=== PATIENT | male | born 1980 | race African-American/Black ===

== ENCOUNTER 2016-10-19 13:50 | Emergency (ER) | payer MEDICAID ==
[~2016-10-19] VITALS: Ht 160 cm; Wt 77.1 kg
[~2016-10-19 13:50] MED LIST: ALBU0.0939 IH
[2016-10-19 14:04] VITALS: BP 129/70
--- NOTE | 2016-10-19 14:35 | NUR ---
PT PRESENTS TO ER W/C/O SOB. PT STATES HE HAS HX OF ASTHMA AND RAN OUT OF HIS MEDICATION YESTERDAY AND NOW FEELS SOB. DENIES N/V/D; SKIN IS PINK/WARM/DRY; AAOX4 WITH EVEN AND STEADY GAIT; LUNGS EXP WHEEZING BL; HR EVEN AND REGULAR; PT DENIES ANY FEVER, CP, OR COUGH AT THIS TIME; PATIENT STATES PAIN OF 0/10 AT THIS TIME; VSS; PATIENT POSITIONED FOR COMFORT; HOB ELEVATED; BEDRAILS UP X2; BED DOWN. ER MD MADE AWARE OF PT STATUS.
[2016-10-19] MEDS ORDERED: ALBUTEROL SULFATE/IPRATROPIU 3 ML SOL IH ONE (16:05)
[2016-10-19] MEDS ORDERED: predniSONE 20 MG TAB PO ONE (16:05)
[2016-10-19 16:54] VITALS: BP 129/70
--- NOTE | 2016-10-19 16:54 | NUR ---
Patient discharged with v/s stable. Written and verbal after care instructions given and explained. Patient alert, oriented and verbalized understanding of instructions. Ambulatory with steady gait. All questions addressed prior to discharge. ID band removed. Patient advised to follow up with PMD. Rx of ALBUTEROL, PREDNISONE given. Patient educated on indication of medication including possible reaction and side effects. Opportunity to ask questions provided and answered.
== END 2016-10-19 16:54 | disposition home or self-care (01) ==
LOC: MED 13:50
DX: Z76.0 Encounter for issue of repeat prescription (principal); J45.901 Unspecified asthma with (acute) exacerbation; R03.0 Elevated blood-pressure reading, without diagnosis of hypertension
CPT/HCPCS: 94640; 99283; J7512; J7620

== ENCOUNTER 2019-08-26 22:40 | Emergency (ER) | payer SELFPAY ==
[~2019-08-26] VITALS: Ht 160 cm; Wt 74.8 kg
[2019-08-26 22:40] VITALS: BP 126/79
--- NOTE | 2019-08-26 22:40 | NUR ---
TO BED # 8 AMBULATORY
[2019-08-26 22:50] VITALS: BP 126/79
--- NOTE | 2019-08-26 22:50 | NUR ---
PT ASSESSMENT COMPLETE. PT SEATED UPRIGHT IN BED. WILL CONTINUE TO MONITOR.
--- NOTE | 2019-08-26 23:02 | NUR ---
Dr. Mo examining patient.
[2019-08-26] MEDS: predniSONE 20 MG TAB PO ONE (23:07)
[2019-08-26] MEDS: ALBUTEROL SULFATE/IPRATROPIU 3 ML SOL IH ONE (23:11)
[2019-08-26] MEDS: ALBUTEROL 0.083% 2.5 MG/3 ML NEBU INH ONE (23:11)
--- NOTE | 2019-08-26 23:15 | NUR ---
Respiratory Therapist at bedside for respiratory intervention.
--- NOTE | 2019-08-26 23:28 | NUR ---
Patient discharged with v/s stable. Written and verbal after care instructions given and explained. Patient alert, oriented and verbalized understanding of instructions. Ambulatory with steady gait. All questions addressed prior to discharge. ID band removed. Patient advised to follow up with PMD. Rx of PREDNISONE AND ALBUTEROL given. Patient educated on indication of medication including possible reaction and side effects. Opportunity to ask questions provided and answered.
== END 2019-08-26 23:28 | disposition home or self-care (01) ==
LOC: MED 22:40
DX: J45.909 Unspecified asthma, uncomplicated (principal); Z79.899 Other long term (current) drug therapy
CPT/HCPCS: 94640; 99283; J7512; J7613; J7620

== ENCOUNTER 2020-06-27 23:12 | Emergency (ER) | payer OTHER ==
[~2020-06-27] VITALS: Ht 162.6 cm; Wt 77.1 kg
[2020-06-27 23:26] VITALS: BP 134/79
[2020-06-28] MEDS ORDERED: KETOROLAC 30 MG/ML VIAL IVP ONE (00:55)
[2020-06-28] MEDS ORDERED: PANTOPRAZOLE 40 MG INJ VIAL IVP ONE (00:55)
[2020-06-28 01:31] LABS: BASOPHILS # (AUTO) 0.1 K/uL (0.00-0.22); EOSINOPHILS # (AUTO) 0.3 K/uL (0-0.4); EOSINOPHILS % (AUTO) 4.6 % (0.0-4.0); HEMATOCRIT 43.7 % (36-52); HEMOGLOBIN 14.3 g/dL (12.0-18.0); LYMPHOCYTES # (AUTO) 3.3 K/uL (2.0-11.5); LYMPHOCYTES % (AUTO) 45.8 % (20.5-51.1); MEAN CORPUSCULAR HEMOGLOBIN 29 pg (27-31); MEAN CORPUSCULAR HGB CONC 33 g/dL (33-37); MEAN CORPUSCULAR VOLUME 86.9 fL (80-94); MONOCYTES # (AUTO) 0.5 K/uL (0.8-1.0); MONOCYTES % (AUTO) 7.7 % (1.7-9.3); NEUTROPHILS # (AUTO) 2.9 K/uL (1.8-7.7); NEUTROPHILS % (AUTO) 40.9 % (42.2-75.2); PLATELET COUNT (AUTO) 324 K/uL (140-450); RED BLOOD CELL COUNT(AUTO) 5.02 MIL/uL (4.20-6.10); RED CELL DISTRIBUTION WIDTH 14.6 % (11.6-13.7); WHITE BLOOD COUNT (AUTO) 7.1 K/uL (4.8-10.8)
[2020-06-28 01:45] LABS: ALBUMIN 3.7 g/dL (3.4-5.0); ANION GAP 10.8 (8-16); CREATININE 1.3 mg/dL (0.6-1.3); POTASSIUM 3.8 mmol/L (3.5-5.1); TOTAL BILIRUBIN 0.2 mg/dL (0.0-1.0)
[2020-06-28] MEDS: KETOROLAC 30 MG/ML VIAL IM ONE (02:01)
[2020-06-28] MEDS: PANTOPRAZOLE 40 MG TABEC PO ONE (02:02)
[2020-06-28 04:06] VITALS: BP 138/81
--- NOTE | 2020-06-28 04:06 | NUR ---
Patient discharged with v/s stable. Written and verbal after care instructions given and explained. Patient alert, oriented and verbalized understanding of instructions. Ambulatory with steady gait. All questions addressed prior to discharge. ID band removed. Patient advised to follow up with PMD. Rx of protonix given. Patient educated on indication of medication including possible reaction and side effects. Opportunity to ask questions provided and answered.
== END 2020-06-28 04:06 | disposition home or self-care (01) ==
LOC: MED 23:12
DX: R10.13 Epigastric pain (principal)
CPT/HCPCS: 36415; 74176; 80053; 83605; 83690; 84484; 85025; 93005; 96372; 99285; J1885

== ENCOUNTER 2020-11-04 08:52 | Emergency (ER) | payer OTHER ==
[~2020-11-04] VITALS: Ht 162.6 cm; Wt 81.6 kg
[2020-11-04 09:04] VITALS: BP 129/52
--- NOTE | 2020-11-04 09:08 | NUR ---
PATIENT AMBULATED TO BED 12 AT THIS TIME.
--- NOTE | 2020-11-04 09:19 | NUR ---
40 Y/O MALE C/O EPIGASTRIC PAIN 02/07 DESCRIBES PRESSURE X 1WEEK. PT REPORTS NOTICING A LUMP ON SAME AREA 2 WEEKS AGO. ABDOMEN IS SOFT, ROUND, GUARDING ON PALPATION TO EPIGASTRIC AREA. BOWEL SOUNDS ACTIVE X4, LAST BM 11/03/20. PT DENIES N/V, DENIES FEVER/CHILLS. PMH: ASTHMA, GERD RX: ALBUTEROL INH, PRILOSEC 40MG NKA
--- NOTE | 2020-11-04 09:31 | NUR ---
Dr. Parkinson at pt bedside for further evaluation.
[2020-11-04] MEDS ORDERED: NAPR-1704 PO (09:43)
[2020-11-04 09:49] VITALS: BP 129/52
--- NOTE | 2020-11-04 09:50 | NUR ---
Patient discharged with v/s stable. Written and verbal after care instructions given and explained. Patient alert, oriented and verbalized understanding of instructions. Ambulatory with steady gait. All questions addressed prior to discharge. ID band removed. Patient advised to follow up with PMD. Rx of NAPROSYN 375MG PO BID PRN PAIN given. Patient educated on indication of medication including possible reaction and side effects. Opportunity to ask questions provided and answered.
== END 2020-11-04 09:50 | disposition home or self-care (01) ==
LOC: MED 08:52
DX: K46.9 Unspecified abdominal hernia without obstruction or gangrene (principal); J45.909 Unspecified asthma, uncomplicated; K21.9 Gastro-esophageal reflux disease without esophagitis
CPT/HCPCS: 99282

== ENCOUNTER 2021-01-03 15:18 | Emergency (ER) | payer SELFPAY ==
[~2021-01-03] VITALS: Ht 162.6 cm; Wt 85.7 kg
[~2021-01-03 15:18] MED LIST changes: +NAPR-1704 PO
[2021-01-03 15:20] VITALS: BP 146/77
--- NOTE | 2021-01-03 16:05 | NUR ---
40/M presents to ED with c/o shortness of breath for 2 days. Patient has hx of asthma states, "I ran out of my albuterol inhaler and I feel a little short of breath." Patient denies chest pain or cough, states he has no PCP to follow up with for Rx of albuterol. Patient 99% on room air upon arrival to ED.
[2021-01-03] MEDS ORDERED: DEXAMETHASONE 4 MG/ML VIAL PO ONE (17:00)
[2021-01-03] MEDS ORDERED: ALBU0.0912 INH (17:03)
[2021-01-03 17:43] VITALS: BP 157/89
--- NOTE | 2021-01-03 17:44 | NUR ---
Patient discharged with v/s stable. Written and verbal after care instructions given and explained. Patient alert, oriented and verbalized understanding of instructions. Ambulatory with steady gait. All questions addressed prior to discharge. ID band removed. Patient advised to follow up with PMD. Rx of Albuterol Sulfate given. Patient educated on indication of medication including possible reaction and side effects. Opportunity to ask questions provided and answered.
== END 2021-01-03 17:44 | disposition home or self-care (01) ==
LOC: MED 15:18
DX: J45.901 Unspecified asthma with (acute) exacerbation (principal); K21.9 Gastro-esophageal reflux disease without esophagitis
CPT/HCPCS: 99283; J1100

== ENCOUNTER 2021-06-02 15:17 | Emergency (ER) | payer SELFPAY ==
[~2021-06-02] VITALS: Ht 162.6 cm; Wt 88.5 kg
[~2021-06-02 15:17] MED LIST changes: +ALBU0.0912 INH
[2021-06-02 15:26] VITALS: BP 134/74
--- NOTE | 2021-06-02 16:13 | NUR ---
ATTEMPTED TO CALL PATIENT AND NO ANSWER AT THIS TIME
--- NOTE | 2021-06-02 16:33 | NUR ---
41 y/o m bib self from home, patient presents to ED with abscess on right side of face. Redness in area pain upon palpation, 9/10 sharp pain, denies blurry vision, nausea, vomiting, diarrhea. DENIES N/V/D; SKIN IS PINK/WARM/DRY; AAOX4 WITH EVEN AND STEADY GAIT; LUNGS CLEAR BL; HR EVEN AND REGULAR; PT DENIES ANY FEVER, CP, SOB, OR COUGH AT THIS TIME; PATIENT STATES PAIN OF 9/10 AT THIS TIME; VSS; PATIENT POSITIONED FOR COMFORT; HOB ELEVATED; BEDRAILS UP X2; BED DOWN. ER MD MADE AWARE OF PT STATUS. pmh: asthma med: albuterol nka
--- NOTE | 2021-06-02 16:38 | NUR ---
DIALLO WIGGINS BEDSIDE EVALUATING PT
[2021-06-02] MEDS ORDERED: NAPR-54 PO (16:43)
[2021-06-02] MEDS ORDERED: AMOX-1000 PO (16:43)
[2021-06-02] MEDS ORDERED: KETOROLAC 30 MG/ML VIAL IM ONE (16:45)
[2021-06-02 17:03] VITALS: BP 128/70
--- NOTE | 2021-06-02 17:03 | NUR ---
Patient discharged with v/s stable. Written and verbal after care instructions given PAROTITIS and explained. Patient alert, oriented and verbalized understanding of instructions. Ambulatory with steady gait. All questions addressed prior to discharge. ID band removed. Patient advised to follow up with PMD. Rx of AUGMENTIN, AND NAPROXEN given. Patient educated on indication of medication including possible reaction and side effects. Opportunity to ask questions provided and answered.
== END 2021-06-02 17:03 | disposition home or self-care (01) ==
LOC: MED 15:17
DX: K11.20 Sialoadenitis, unspecified (principal); J45.909 Unspecified asthma, uncomplicated; K21.9 Gastro-esophageal reflux disease without esophagitis; Z79.1 Long term (current) use of non-steroidal anti-inflammatories (NSAID); Z79.2 Long term (current) use of antibiotics; Z79.51 Long term (current) use of inhaled steroids
CPT/HCPCS: 96372; 99283; J1885

== ENCOUNTER 2021-08-29 13:56 | Emergency (ER) | payer BC ==
[~2021-08-29] VITALS: Ht 162.6 cm; Wt 88.0 kg
[~2021-08-29 13:56] MED LIST changes: +AMOX-1000 PO; +NAPR-54 PO
[2021-08-29 13:57] VITALS: BP 130/85
--- NOTE | 2021-08-29 14:07 | NUR ---
41 Male BIB self for c/o lower back pain x 3 days. Pt states this is a chronic problem that comes and goes. Denies any recent trauma to back or falls. No pritrusions or bruises/lumps/masses noted on back. AOX4, able to make needs known. Resp even and unlabored. PmHx: asthma Home meds: albuterol Allergies: Denies
[2021-08-29] MEDS ORDERED: KETOROLAC 30 MG/ML VIAL IM ONE (14:40)
[2021-08-29] MEDS ORDERED: LID5T TP (15:18)
[2021-08-29] MEDS ORDERED: IBUP-2213 PO (15:18)
[2021-08-29] MEDS ORDERED: ACET-8386 PO (15:18)
--- NOTE | 2021-08-29 15:20 | NUR ---
DIALLO Hernandes at bedside to assess pt at this time
--- NOTE | 2021-08-29 15:53 | NUR ---
Urine sample obtained, dipped and results given to DIALLO Hernandes
[2021-08-29 16:08] VITALS: BP 132/27
--- NOTE | 2021-08-29 16:08 | NUR ---
Patient discharged with v/s stable. Written and verbal after care instructions given and explained. Patient alert, oriented and verbalized understanding of instructions. All questions addressed prior to discharge. ID band removed. Patient advised to follow up with PMD. Rx of NORCO 5/325, IBUPROFEN AND LIDOCAINE PATCH 5% given. Patient educated on indication of medication including possible reaction and side effects. Opportunity to ask questions provided and answered.
== END 2021-08-29 16:08 | disposition home or self-care (01) ==
LOC: MED 13:56
DX: M54.59 Other low back pain (principal); R03.0 Elevated blood-pressure reading, without diagnosis of hypertension; J45.909 Unspecified asthma, uncomplicated; K21.9 Gastro-esophageal reflux disease without esophagitis; Z79.899 Other long term (current) drug therapy
CPT/HCPCS: 81002; 96372; 99283; J1885

== ENCOUNTER 2021-10-05 19:42 | Emergency (ER) | payer BC ==
[~2021-10-05] VITALS: Ht 162.6 cm; Wt 86.2 kg
[~2021-10-05 19:42] MED LIST changes: +ACET-8386 PO; +IBUP-2213 PO; +LID5T TP
[2021-10-05 19:45] VITALS: BP 140/90
[2021-10-05] MEDS ORDERED: IBUP-2213 PO (21:28)
[2021-10-05] MEDS ORDERED: IBUPROFEN 600 MG TAB PO ONE (21:30)
[2021-10-05 22:10] VITALS: BP 139/70
== END 2021-10-05 22:10 | disposition home or self-care (01) ==
LOC: MED 19:42
DX: S46.011A Strain of muscle(s) and tendon(s) of the rotator cuff of right shoulder, initial encounter (principal); J45.909 Unspecified asthma, uncomplicated; K21.9 Gastro-esophageal reflux disease without esophagitis; Z79.891 Long term (current) use of opiate analgesic; Z79.1 Long term (current) use of non-steroidal anti-inflammatories (NSAID); Z79.899 Other long term (current) drug therapy; Z79.2 Long term (current) use of antibiotics; X58.XXXA Exposure to other specified factors, initial encounter; Y93.61 Activity, american tackle football; Y92.321 Football field as the place of occurrence of the external cause; Y99.8 Other external cause status
CPT/HCPCS: 73030; 99283

== ENCOUNTER 2021-11-25 14:27 | Emergency (ER) | payer BC ==
[~2021-11-25] VITALS: Ht 160 cm; Wt 85.7 kg
[2021-11-25 14:38] VITALS: BP 127/73
--- NOTE | 2021-11-25 15:08 | NUR ---
PT AMBULATED TO BED 03.
--- NOTE | 2021-11-25 15:11 | NUR ---
DR. BOOTH AT PT BEDSIDE FOR FURTHER EVALUATION.
[2021-11-25] MEDS ORDERED: KETOROLAC 30 MG/ML VIAL IM ONE (15:15)
[2021-11-25] MEDS ORDERED: ALBUTEROL SULFATE/IPRATROPIU 3 ML SOL IH ONE (15:15)
[2021-11-25] MEDS ORDERED: LORATADINE 10 MG TAB PO ONE (15:15)
[2021-11-25] MEDS ORDERED: predniSONE 20 MG TAB PO ONE (15:15)
--- NOTE | 2021-11-25 15:16 | NUR ---
41 Y/O MALE C/O PRODUCTIVE COUGH WITH YELLOW PHLEGM, PRESENT AND SOB X1 WEEK. PT CURRENTLY SATING 99% ON RA. PT ALSO C/O CHEST PAIN/TIGHTNESS. LUNGS AUSCULTATED CLEAR BILATERALLY. DENIES FEVER/CHILLS. DENIES N/V/D. PMH: ASTHMA NKA
--- NOTE | 2021-11-25 15:29 | NUR ---
RT AT PT BEDSIDE FOR BREATHING TX.
--- NOTE | 2021-11-25 16:32 | NUR ---
DR. BOOTH AT PT BEDSIDE FOR FOR REEVALUATION.
[2021-11-25] MEDS ORDERED: LORA10TA19 PO (16:40)
[2021-11-25] MEDS ORDERED: ALBU0.0912 IH (16:40)
[2021-11-25] MEDS ORDERED: PRED20TA5 PO (16:40)
--- NOTE | 2021-11-25 17:00 | NUR ---
Patient discharged with v/s stable. Written and verbal after care instructions given FOR UPPER RESPIRATORY INFECTION AND ASTHMA ATTACK and explained. Patient alert, oriented and verbalized understanding of instructions. Ambulatory with steady gait. All questions addressed prior to discharge. ID band removed. Patient advised to follow up with PMD. Rx of ALBUTEROL, PREDNISONE, AND CLARITIN given. Patient educated on indication of medication including possible reaction and side effects. Opportunity to ask questions provided and answered.
[2021-11-25 17:01] VITALS: BP 122/79
== END 2021-11-25 17:00 | disposition home or self-care (01) ==
LOC: MED 14:27
DX: J45.901 Unspecified asthma with (acute) exacerbation (principal); Z20.822 Contact with and (suspected) exposure to COVID-19; J06.9 Acute upper respiratory infection, unspecified; K21.9 Gastro-esophageal reflux disease without esophagitis; Z79.899 Other long term (current) drug therapy; Z79.1 Long term (current) use of non-steroidal anti-inflammatories (NSAID); Z79.891 Long term (current) use of opiate analgesic; Z79.2 Long term (current) use of antibiotics
CPT/HCPCS: 87426; 87804; 94640; 96372; 99283; J1885; J7512

== ENCOUNTER 2022-04-18 10:30 | Emergency (ER) | payer SELFPAY ==
[~2022-04-18] VITALS: Ht 172.7 cm; Wt 74.8 kg
[~2022-04-18 10:30] MED LIST changes: +ALBU0.0912 IH; +LORA10TA19 PO; +PRED20TA5 PO
[2022-04-18 10:34] VITALS: BP 130/72
--- NOTE | 2022-04-18 10:40 | NUR ---
42/M WALKED IN C/O LOWER BACK PAIN RADIATING TO RIGHT LEG ONSET 2 DAYS. STATES HX SCIATICA. STATES CURRENT S/SX IS SIMILAR TO FLAREUPS IN THE PAST. DENIES FALL OR TRAUMA. AAO4, AMBULATORY. PMH: ASTHMA
[2022-04-18 10:50] VITALS: BP 134/75
[2022-04-18] MEDS ORDERED: NAPR-1704 PO (11:01)
[2022-04-18] MEDS ORDERED: LID5T TP (11:01)
[2022-04-18] MEDS ORDERED: ACET-8386 PO (11:01)
--- NOTE | 2022-04-18 11:05 | NUR ---
Patient discharged with v/s stable. Written and verbal after care instructions given and explained. Patient verbalized understanding. Ambulatory with steady gait. All questions addressed prior to discharge. Advised to follow up with PMD.
== END 2022-04-18 11:05 | disposition home or self-care (01) ==
LOC: MED 10:30
DX: M54.31 Sciatica, right side (principal); J45.909 Unspecified asthma, uncomplicated; K21.9 Gastro-esophageal reflux disease without esophagitis
CPT/HCPCS: 99283

== ENCOUNTER 2022-05-28 15:12 | Emergency (ER) | payer SELFPAY ==
[~2022-05-28] VITALS: Ht 167.6 cm; Wt 83.9 kg
[2022-05-28 15:18] VITALS: BP 130/80
[2022-05-28] MEDS ORDERED: CEPH-588 PO (15:39)
[2022-05-28] MEDS ORDERED: IBUP-2213 PO (15:39)
--- NOTE | 2022-05-28 16:10 | NUR ---
PT NOT FOUND IN LOBBY OR OUTSIDE LOBBY, LEFT W/O DC PAPERS
== END 2022-05-28 17:17 | disposition home or self-care (01) ==
LOC: MED 15:12
DX: L03.012 Cellulitis of left finger (principal); J45.909 Unspecified asthma, uncomplicated; K21.9 Gastro-esophageal reflux disease without esophagitis
CPT/HCPCS: 99283

== ENCOUNTER 2022-09-04 21:40 | Emergency (ER) | payer SELFPAY ==
[~2022-09-04] VITALS: Ht 162.6 cm; Wt 95.3 kg
[~2022-09-04 21:40] MED LIST changes: -ACET-8386 PO; +ACET-8905 PO; +CEPH-588 PO
[2022-09-04 21:49] VITALS: BP 129/85
--- NOTE | 2022-09-04 21:53 | NUR ---
pt to bed
--- NOTE | 2022-09-04 22:00 | NUR ---
PT IS HERE FOR DENTAL PAIN 04/09. HE ATE SOMETHING AND DONOVAN BROKE HIS ANA PAULA TOOTH. PT IS ALERT AND ORIENTED X4.
[2022-09-04] MEDS ORDERED: ACET-10509 PO (22:45)
[2022-09-04] MEDS ORDERED: IBUP-2213 PO (22:45)
[2022-09-04] MEDS ORDERED: AMOX-999 PO (22:48)
[2022-09-04 23:26] VITALS: BP 129/85
--- NOTE | 2022-09-04 23:33 | NUR ---
Patient discharged with v/s stable. Written and verbal after care instructions given and explained. Patient verbalized understanding. Ambulatory with steady gait. All questions addressed prior to discharge. Advised to follow up with PMD. PT LEFT WITH BELONGINGS.
== END 2022-09-04 23:26 | disposition home or self-care (01) ==
LOC: MED 21:40
DX: K04.01 Reversible pulpitis (principal); K04.7 Periapical abscess without sinus; J45.909 Unspecified asthma, uncomplicated; K21.9 Gastro-esophageal reflux disease without esophagitis; Z79.899 Other long term (current) drug therapy
CPT/HCPCS: 99282